=== PATIENT | female | born 1945 | race Caucasian/White ===

== ENCOUNTER 2020-09-14 16:57 | Emergency (ER) | payer MEDICARE, SELFPAY ==
[2020-09-14 17:12] VITALS: BP 123/67; PULSE 80; RESP 16; TEMP 36.5; O2SAT 94; BMI 18.6
--- NOTE | 2020-09-14 17:55 | XRR_ITS ---
PROCEDURE INFORMATION: Exam: XR Left Elbow Exam date and time: 09/14/2020 6:14 PM Age: 75 years old Clinical indication: Injury or trauma; Fall; Blunt trauma (contusions or hematomas); Elbow; Left TECHNIQUE: Imaging protocol: XR Left elbow. Views: 3 or more views. COMPARISON: No relevant prior studies available. FINDINGS: Bones/joints: No fracture or other acute osseous abnormality. No joint narrowing, dislocation, or effusion noted. Soft tissues: The soft tissues appear unremarkable. XR/XR elbow LT min 3V* [id number] IMPRESSION: No acute abnormality demonstrated.
--- NOTE | 2020-09-14 17:55 | XRR_ITS ---
PROCEDURE INFORMATION: Exam: XR Left Wrist Exam date and time: 09/14/2020 6:14 PM Age: 75 years old Clinical indication: Injury or trauma; Fall; Blunt trauma (contusions or hematomas); Wrist; Left TECHNIQUE: Imaging protocol: XR Left wrist. Views: 3 or more views. COMPARISON: No relevant prior studies available. FINDINGS: Bones/joints: No fracture or other acute osseous abnormality. Mild degenerative changes of the carpus. No dislocation of the joints. Soft tissues: The soft tissues appear unremarkable. XR/XR wrist LT min 3V* [id number] IMPRESSION: No acute abnormality demonstrated.
--- NOTE | 2020-09-14 17:55 | XRR_ITS ---
PROCEDURE INFORMATION: Exam: XR Left Shoulder Exam date and time: 09/14/2020 6:14 PM Age: 75 years old Clinical indication: Injury or trauma; Fall; Blunt trauma (contusions or hematomas); Shoulder; Left TECHNIQUE: Imaging protocol: XR Left shoulder. Views: 2 or more views. COMPARISON: No relevant prior studies available. FINDINGS: Bones/joints: The glenohumeral joint is intact. Mild degeneration of the acromioclavicular joint. No AC separation. No fracture or other acute osseous abnormality. Soft tissues: Calcifications in the soft tissues of the subacromial space, consistent with calcific tendinitis of the rotator cuff. XR/XR shoulder LT min 2V* [id number] IMPRESSION: 1. Calcifications in the soft tissues of the subacromial space, consistent with calcific tendinitis of the rotator cuff. 2. No acute fracture or dislocation demonstrated.
--- NOTE | 2020-09-14 17:56 | ED_ITS ---
HPI - Extremity Problem General: Chief complaint: Extremity Injury, Upper Stated complaint: FELL Time Seen by Provider: 09/14/20 17:42 History of Present Illness: HPI Narrative: Patient is a 75-year-old female comes to the ED with left arm pain after fall. Fall occurred last night when she got up out of bed. There was a piece of cardboard on the floor and she slid on the cardboard. She fell on her left arm was outstretched. She now has pain in her wrist and it radiates up into her elbow and her shoulder is sore as well. Denies any loss of consciousness or head trauma. She says any rotating of her wrist is too painful to do. Associated symptoms: Deny chest pain, fever(s) or rash Review of Systems Const: Denies: fever(s), chills or fatigue Eyes: Denies: change in vision or eye discomfort ENMT: Denies: throat pain, odynophagia, nasal discharge or nasal congestion Card: Denies: chest pain, palpitations, edema, swelling of feet/ankles, dyspnea on exertion or orthopnea Resp: Denies: dyspnea, productive cough or non-productive cough GI: Denies: abdominal pain, nausea, vomiting, diarrhea, constipation or hematochezia : Denies: flank pain, dysuria or hematuria Musc: Reports: extremity pain (left arm pain); Denies: neck pain, back pain or extremity swelling Skin/Breast: Denies: rash or new lesions Neuro: Denies: headache(s), numbness in extremities or weakness in extremities Physical Exam Const: COMMON NORMALS: no acute distress, patient oriented x3, healthy a ppearing and alert GENERAL APPEARANCE: cooperative and comfortable HENMT: COMMON NORMALS: normocephalic HEAD & SCALP: normocephalic MOUTH: Normal oral and palatal mucosa present THROAT: posterior oropharynx normal and uvula midline Neck/C-Spine: COMMON NORMALS: supple GENERAL: Yes normal visual inspection Resp: COMMON NORMALS: normal respiratory effort, No retractions, No use of accessory muscles and clear to auscultation bilaterally AUSCULTATION: clear to auscultation bilaterally Cardio: COMMON NORMALS: regular rate, regular rhythm, S1 normal heart sound present, S2 normal heart sound present, No gallops present (Cardio), No clicks present (Cardio), No murmurs present (Cardio) and Peripheral pulses 2+ throughout RATE: regular rate RHYTHM: regular rhythm HEART SOUNDS: S1 normal heart sound present and S2 normal heart sound present PERIPHERAL PULSES: Peripheral pulses 2+ throughout GI: COMMON NORMALS: Normal to inspection, nondistended, normoactive bowel sounds present, Soft to palpation, non-tender and no masses PALPATION: Yes Soft to palpation : COMMON NORMALS: Yes no CVA tenderness BLADDER/KIDNEY EXAM: Yes no CVA tenderness Back/Pelvis: COMMON NORMALS: no CVA tenderness Extremity: LEFT UPPER EXTREMITY: Yes elbow joint Left elbow: Yes palpation (Mild tenderness on the medial and lateral aspect of elbow.) and Yes neurovascular exam (Intact) and Yes wrist Left wrist: Yes inspection (Patient has ecchymosis and visible edema in the wrist.), Yes palpation (Tender along distal radial head), Yes ROM (Limited due to pain especially pronate or supinate movements.) and Yes neurovascular exam (Intact, radial pulse 2+.) Neuro: COMMON NORMALS: patient oriented x3 and moves all extremities SENSORIUM/ORIENTATION: Yes alert Skin: GENERAL SKIN EXAM: dry skin Course Vital Signs: Vital signs: Vital Signs Temperature 97.7 F 09/14/20 17:12 Pulse Rate 79 09/14/20 19:58 Respiratory Rate 16 09/14/20 19:58 Blood Pressure 132/86 09/14/20 19:58 Pulse Oximetry 98 09/14/20 19:58 MDM - Extremity (Nontraumatic) MDM Narrative: Medical decision making narrative: Patient is a 75-year-old female comes to the ED with left arm pain after fall. Upon exam patient has ecchymosis and edema around left wrist and is tender on radial aspect of the wrist. Pain unable to pronate or supinate wrist. Radial pulse 2+ and neurovascular intact. X-rays of left shoulder, left elbow left wrist showed no acute fractures or findings. Due to patient's exam findings and pain I am going to put patient in a splint and treat it as a wrist fracture. I placed an order with case management for patient be referred to orthopedic doctor. Patient was discharged home in splint told to limit activity with left arm. I told her case management will call her to set up a time for her to see orthopedic doctor. She was sent home with written prescription for [place] 5/325 mg for pain. Return to ED precautions given. Patient understood and agree with plan. Imaging Data^: Xray Ortho: Attestation: I personally reviewed and interpreted this imaging study as follows: My impression: Left wrist x-ray?no acute fractures or findings but swelling seen. Left elbow x-ray?no acute fractures or findings. Left shoulder x-ray no acute fractures or findings or dislocations seen. Discharge Plan Discharge Patient Disposition: Home Clinical Impression: Fracture of wrist Qualifiers: Encounter type: initial encounter Fracture type: closed Laterality: left Qualified Code(s): S62.102A - Fracture of unspecified carpal bone, left wrist, initial encounter for closed fracture Condition: Stable Discharge Orders: Discharge ED (Routine); Ordered 09/14/20 Ordered By: Levon Meza Discharge Diet: Regular Discharge Activity: Limit activity as instructed Patient Instructions: Wrist Fracture in Adults (ED), SUSPECTED FRACTURE (ED) Activity Restrictions/Additional Instructions: Follow-up with medical provider as directed. Case management should be contacting you in the next several days set up appointment with orthopedic doctor for reevaluation. Take medications as prescribed. Keep splint on and dry and limit use of left arm. You can use the shoulder sling as needed throughout the day to help with pain. Make sure to remove the shoulder sling daily and do some range of motion exercises with shoulder to prevent frozen shoulder. Return to the ER or your medical provider if condition worsens. Please read and understand discharge instructions. If any questions, please ask. Coding Level of Care Code ED Pay Station Department Manager for [facility]wdie[facility] Exam Comprehensive
[2020-09-14] MEDS: HYDROcodone-acetaminophen 5-325 mg Tablet 1 TAB PO (18:18)
[2020-09-14 19:58] VITALS: BP 132/86; PULSE 79; RESP 16; O2SAT 98
--- NOTE | 2020-09-16 10:27 | DCPLANNER ---
manager drug safety had message to schedule a follow up appointment for patient with ortho. manager drug safety called the ortho clinic, spoke with Berna, gave clinic patients information. manager drug safety was told that patients information would be printed and reviewed. Clinic will call patient with appointment information.
--- NOTE | 2020-09-17 08:00 | DCPLANNER ---
Patient has a follow up appointment scheduled for Thursday, September 17, [address] at 9:[address] Cotton. Clinic will call patient with appointment information.
--- NOTE | 2020-10-25 14:13 | DCPLANNER ---
Patient had a follow up appointment scheduled for 09.17.20 with ortho - patient did attend appointment.
== END 2020-09-14 20:01 | disposition home or self-care (01) ==
PROVIDERS: Emergency Provider Physician Assistant
DX: S62.102A Fracture of unspecified carpal bone, left wrist, initial encounter for closed fracture (principal); W01.0XXA Fall on same level from slipping, tripping and stumbling without subsequent striking against object, initial encounter
CPT/HCPCS: 12345; 73030; 73080; 73110; 99281; 99283